=== PATIENT | male | born 1940 | race African-American/Black ===

== ENCOUNTER 2022-07-01 05:39 | Inpatient (IN) ==
[2022-07-01] MEDS ORDERED: ALBUTEROL/IPRATROPIUM 3 ML NEB RESP TX STA (05:51)
[2022-07-01] MEDS ORDERED: methylPREDNISolone SOD SUC 125 MG/2 ML VIAL IV STA (05:51)
[2022-07-01] MEDS ORDERED: ALBUTEROL 2.5 MG/3 ML NEB RESP TX ONE (05:54)
[2022-07-01] MEDS ORDERED: ALBUTEROL NEB SOLN 5 MG/ML 20 ML/BOTTLE CONT NEB SCH (06:00)
[2022-07-01] MEDS ORDERED: NITROGLYCERIN 2% OINT 1 INCH/GM PACK TOP STA (06:15)
[2022-07-01] MEDS ORDERED: FUROSEMIDE 40 MG/4 ML VIAL IV STA (06:15)
[2022-07-01 06:17] LABS: ABG Base Excess 4.4 MMOL/L (-2.5-2.5); ABG HCO3 28.2 MMOL/L (20-26); ABG Oxygen Saturation 89.7 % (95-100); ABG PCO2 41.2 MM HG (35-48); ABG PH 7.452 (7.35-7.45); ABG PO2 55.7 MM HG (80-95); ABG TCO2 25.6 MMOL/L (23-27)
[2022-07-01 06:20] LABS: Eosinophils % 0.4 % (0.00-10.9); Hematocrit 38.4 VOL% (42.0-52.0); Immature Granulocytes % 0.2 %; Immature Granulocytes Absolute 0.01 #; Lymphocytes # 0.5 10*3/uL (1.4-4.0); Lymphocytes % 8.3 % (21.2-54.2); Mean Corpuscular HGB Conc 31.3 GM/DL (32-36); Mean Corpuscular Volume 99.7 FL (87-102); Mean Platelet Volume 12.2 FL (9.6-12.0); Monocytes # 0.2 10*3/uL (0.11-0.8); Monocytes % 3.1 % (1.7-12.7); Platelet Count 111 T/CUMM (130-400); Red Blood Count 3.85 MC/CUMM (3.8-5.5); Red Cell Distribution Width 13.2 % (9.3-17.3); White Blood Count 5.4 T/CUMM (4-12)
[2022-07-01 06:22] LABS: PT Patient Result 11.2 SECS (10.1-12.1)
[2022-07-01] MEDS ORDERED: LEVOFLOXACIN INJ 750 MG/150 ML PREMIX IV STA (06:35)
[2022-07-01 06:37] LABS: Alanine Aminotransferase 26 U/L (16-61); Albumin 3.4 G/DL (3.4-5.0); Alkaline Phosphatase 129 U/L (45-117); Aspartate Amino Transferase 30 U/L (0-37); Blood Urea Nitrogen 46 MG/DL (7-18); Calcium 9.3 MG/DL (8.5-10.1); Carbon Dioxide 29 MMOL/L (21-32); Chloride 104 MMOL/L (98-107); Glucose 146 MG/DL (74-106); Osmolality,Calculated 289.7 MOS/KG (273-304); Potassium 5.3 MMOL/L (3.5-5.1); Sodium 138 MMOL/L (136-145); Total Protein 6.8 G/DL (6.4-8.2)
[2022-07-01] MEDS ORDERED: SODIUM CHLORIDE 0.9% 1,750 ML IV ONE (06:37)
[2022-07-01] MEDS ORDERED: SODIUM CHLORIDE 0.9% 1,000 ML IV STA ×2 (06:37→08:39)
[2022-07-01 07:03] LABS: Bilirubin,Urine Negative (Negative); Blood, Urine Negative (Negative); Glucose,Urine (UA) Negative (Negative); Ketones,Urine Negative (Negative); Nitrite,Urine Negative (Negative); Protein,Urine 30 mg/dL (Negative); RBC,Urine 1 /HPF (0-4); Urine Appearance Clear (Clear); Urine Color Yellow (Yellow); Urine Specific Gravity 1.015 (1.001-1.035); Urine Urobilinogen 0.2 eU/dL (<2.0); Urine pH 7.5 (4.5-8.0)
[2022-07-01] MEDS ORDERED: ALBUTEROL 2.5 MG/3 ML NEB RESP TX PRN (08:05)
[2022-07-01] MEDS ORDERED: BISACODYL 5 MG TABLET PO PRN (08:06)
[2022-07-01] MEDS ORDERED: MORPHINE 2 MG/1 ML SYRINGE IV PRN (08:06)
[2022-07-01] MEDS ORDERED: ACETAMINOPHEN 325 MG TABLET PO PRN (08:06)
[2022-07-01] MEDS ORDERED: ONDANSETRON 4 MG/2 ML VIAL IV PRN (08:06)
[2022-07-01] MEDS: ENOXAPARIN 40 MG/0.4 ML SYRINGE SUBCUT SCH (08:55)
[2022-07-01] MEDS: PIPERACILLIN/TAZOBACTAM 3,375 MG in SODIUM CHLORIDE 0.9% 100 ML IV SCH ×2 (08:55→15:51)
[2022-07-01] MEDS ORDERED: SODIUM CHLORIDE 0.9% 1,000 ML IV ONE (09:33)
[2022-07-01 10:00] LABS: Free T4 (Free Thyroxine) 1.14 NG/DL (0.76-1.46); Thyroid Stimulating Hormone 0.522 uIU/ml (0.358-3.74)
[2022-07-01] MEDS: PANTOPRAZOLE 40 MG TABLET PO SCH (10:21)
[2022-07-01] MEDS: SODIUM CHLORIDE 0.9% 1,000 ML IV SCH ×2 (10:48→21:30)
[2022-07-01 10:51] LABS: Arterial Base Excess iSTAT -1 MMOL/L (-2.5-2.5); Arterial Bicarbonate iSTAT 26.7 MMOL/L (20-26); Arterial O2 Saturation iSTAT 47 % (95-100); Arterial PCO2 iSTAT 61 MM HG (35-48); Arterial PO2 iSTAT 30 MM HG (80-95); Arterial Total CO2 iSTAT 29 MMO/L (23-27)
[2022-07-01 14:37] LABS: Calcium 8.8 MG/DL (8.5-10.1); Osmolality,Calculated 293.5 MOS/KG (273-304); Potassium 4.3 MMOL/L (3.5-5.1)
[2022-07-01] MEDS ORDERED: fentaNYL INJ 1,250 MCG in SODIUM CHLORIDE 0.9% 225 ML IV PRN (16:21)
[2022-07-01 16:43] LABS: Arterial Base Excess iSTAT 2 MMOL/L (-2.5-2.5); Arterial Bicarbonate iSTAT 27.1 MMOL/L (20-26); Arterial O2 Saturation iSTAT 98 % (95-100); Arterial PCO2 iSTAT 44 MM HG (35-48); Arterial PO2 iSTAT 99 MM HG (80-95); Arterial Total CO2 iSTAT 28 MMO/L (23-27); Arterial pH iSTAT 7.398 (7.35-7.45)
[2022-07-01] MEDS: DOXAZOSIN 1 MG TABLET PO SCH (20:06)
[2022-07-01] MEDS: TICAGRELOR 90 MG TABLET PO SCH (20:06)
[2022-07-01] MEDS: SIMVASTATIN 10 MG TABLET PO SCH (20:06)
[2022-07-02] MEDS: PIPERACILLIN/TAZOBACTAM 3,375 MG in SODIUM CHLORIDE 0.9% 100 ML IV SCH ×3 (00:22→18:05)
[2022-07-02 05:33] LABS: Hematocrit 30.1 VOL% (42.0-52.0); Hemoglobin 9.5 GM/DL (14.0-18.0); Immature Granulocytes % 0.5 %; Immature Granulocytes Absolute 0.06 #; Lymphocytes # 0.3 10*3/uL (1.4-4.0); Lymphocytes % 2.8 % (21.2-54.2); Mean Corpuscular HGB Conc 31.6 GM/DL (32-36); Mean Corpuscular Volume 99.3 FL (87-102); Mean Platelet Volume 12.8 FL (9.6-12.0); Monocytes # 0.7 10*3/uL (0.11-0.8); Monocytes % 5.8 % (1.7-12.7); Neutrophils % 90.9 % (38.7-73.9); Platelet Count 82 T/CUMM (130-400); Red Blood Count 3.03 MC/CUMM (3.8-5.5); Red Cell Distribution Width 13.6 % (9.3-17.3); White Blood Count 12.2 T/CUMM (4-12)
[2022-07-02 05:48] LABS: Osmolality,Calculated 301.8 MOS/KG (273-304); Potassium 4.3 MMOL/L (3.5-5.1)
[2022-07-02 05:51] LABS: Band Neutrophils 2 % (0-10); Lymphocytes 4 % (20-55); Platelet Estimate Decreased; Total Cells Counted 100
[2022-07-02] MEDS: LACTATED RINGERS 1,000 ML IV SCH ×2 (08:59→16:07)
[2022-07-02] MEDS: ASPIRIN EC 81 MG TABLET PO SCH (08:59)
[2022-07-02] MEDS: ENOXAPARIN 40 MG/0.4 ML SYRINGE SUBCUT SCH (08:59)
[2022-07-02] MEDS: PANTOPRAZOLE 40 MG TABLET PO SCH (09:00)
[2022-07-02] MEDS: SODIUM CHLORIDE 0.9% 1,000 ML IV SCH (09:00)
[2022-07-02] MEDS: TICAGRELOR 90 MG TABLET PO SCH ×2 (09:00→20:06)
[2022-07-02] MEDS: LEVOTHYROXINE 112 MCG TABLET PO SCH (09:00)
[2022-07-02] MEDS: SIMVASTATIN 10 MG TABLET PO SCH (20:06)
[2022-07-02] MEDS: DOXAZOSIN 1 MG TABLET PO SCH (20:07)
[2022-07-03] MEDS: PIPERACILLIN/TAZOBACTAM 3,375 MG in SODIUM CHLORIDE 0.9% 100 ML IV SCH ×3 (01:00→17:02)
[2022-07-03] MEDS: LACTATED RINGERS 1,000 ML IV SCH ×2 (01:00→08:40)
[2022-07-03 05:47] LABS: Basophils % 0.1 % (0.0-0.8); Eosinophils # 0.1 10*3/uL (0.0-0.87); Eosinophils % 0.5 % (0.00-10.9); Hematocrit 30.5 VOL% (42.0-52.0); Hemoglobin 9.7 GM/DL (14.0-18.0); Immature Granulocytes % 0.9 %; Immature Granulocytes Absolute 0.11 #; Lymphocytes # 0.5 10*3/uL (1.4-4.0); Lymphocytes % 4.5 % (21.2-54.2); Mean Corpuscular HGB Conc 31.8 GM/DL (32-36); Mean Corpuscular Volume 99.3 FL (87-102); Mean Platelet Volume 13.8 FL (9.6-12.0); Monocytes # 0.7 10*3/uL (0.11-0.8); Monocytes % 5.6 % (1.7-12.7); Neutrophils % 88.4 % (38.7-73.9); Platelet Count 89 T/CUMM (130-400); Red Blood Count 3.07 MC/CUMM (3.8-5.5); Red Cell Distribution Width 13.5 % (9.3-17.3); White Blood Count 11.7 T/CUMM (4-12)
[2022-07-03 05:56] LABS: Calcium 8.6 MG/DL (8.5-10.1); Phosphorous 2.6 MG/DL (2.5-4.9); Potassium 4.7 MMOL/L (3.5-5.1)
[2022-07-03 06:13] LABS: Band Neutrophils 1 % (0-10); Lymphocytes 7 % (20-55); Platelet Estimate Decreased; Total Cells Counted 100
[2022-07-03] MEDS: ASPIRIN EC 81 MG TABLET PO SCH (09:26)
[2022-07-03] MEDS: ENOXAPARIN 40 MG/0.4 ML SYRINGE SUBCUT SCH (09:26)
[2022-07-03] MEDS: LEVOTHYROXINE 112 MCG TABLET PO SCH (09:26)
[2022-07-03] MEDS: TICAGRELOR 90 MG TABLET PO SCH ×2 (09:26→21:12)
[2022-07-03] MEDS: PANTOPRAZOLE 40 MG TABLET PO SCH (09:26)
[2022-07-03] MEDS: carvediloL 3.125 MG TABLET PO SCH ×2 (15:11→21:12)
[2022-07-03] MEDS: DOXAZOSIN 1 MG TABLET PO SCH (21:12)
[2022-07-03] MEDS: SIMVASTATIN 10 MG TABLET PO SCH (21:12)
[2022-07-04] MEDS: PIPERACILLIN/TAZOBACTAM 3,375 MG in SODIUM CHLORIDE 0.9% 100 ML IV SCH ×4 (01:22→23:57)
[2022-07-04] MEDS: LACTATED RINGERS 1,000 ML IV SCH ×2 (04:09→06:31)
[2022-07-04 05:45] LABS: Basophils % 0.1 % (0.0-0.8); Eosinophils # 0.1 10*3/uL (0.0-0.87); Eosinophils % 0.8 % (0.00-10.9); Hematocrit 28.5 VOL% (42.0-52.0); Immature Granulocytes % 1.1 %; Immature Granulocytes Absolute 0.11 #; Lymphocytes # 0.5 10*3/uL (1.4-4.0); Lymphocytes % 5.2 % (21.2-54.2); Mean Corpuscular HGB Conc 31.6 GM/DL (32-36); Mean Corpuscular Volume 98.6 FL (87-102); Mean Platelet Volume 13.4 FL (9.6-12.0); Monocytes # 0.7 10*3/uL (0.11-0.8); Monocytes % 6.9 % (1.7-12.7); Neutrophils % 85.9 % (38.7-73.9); Platelet Count 95 T/CUMM (130-400); Red Blood Count 2.89 MC/CUMM (3.8-5.5); Red Cell Distribution Width 13.3 % (9.3-17.3); White Blood Count 10.4 T/CUMM (4-12)
[2022-07-04 06:16] LABS: Osmolality,Calculated 287.3 MOS/KG (273-304); Potassium 4.6 MMOL/L (3.5-5.1)
[2022-07-04 06:59] LABS: Platelet Estimate Decreased
[2022-07-04] MEDS: PANTOPRAZOLE 40 MG TABLET PO SCH (08:37)
[2022-07-04] MEDS: TICAGRELOR 90 MG TABLET PO SCH ×2 (08:38→20:11)
[2022-07-04] MEDS: carvediloL 3.125 MG TABLET PO SCH ×2 (08:38→20:11)
[2022-07-04] MEDS: ENOXAPARIN 40 MG/0.4 ML SYRINGE SUBCUT SCH (08:38)
[2022-07-04] MEDS: LEVOTHYROXINE 112 MCG TABLET PO SCH (08:38)
[2022-07-04] MEDS: ASPIRIN EC 81 MG TABLET PO SCH (08:38)
[2022-07-04 12:58] LABS: % Iron Saturation 13.5 % (18-50)
[2022-07-04] MEDS: FLUCONAZOLE INJ 200 MG/100 ML PREMIX IV SCH (12:59)
[2022-07-04 13:06] LABS: Folate 11.06 NG/ML (5.38-24.0)
[2022-07-04] MEDS ORDERED: ACETYLCYSTEINE 20% 800 MG/4 ML VIAL RESP TX SCH (17:22)
[2022-07-04] MEDS ORDERED: ACETYLCYSTEINE 20% 800 MG/4 ML VIAL RESP TX PRN (17:23)
[2022-07-04] MEDS ORDERED: ALBUTEROL/IPRATROPIUM 3 ML NEB RESP TX ONE (18:32)
[2022-07-04] MEDS: SIMVASTATIN 10 MG TABLET PO SCH (20:11)
[2022-07-04] MEDS: DOXAZOSIN 1 MG TABLET PO SCH (20:11)
[2022-07-05] MEDS: ENOXAPARIN 40 MG/0.4 ML SYRINGE SUBCUT SCH (09:46)
[2022-07-05] MEDS: PIPERACILLIN/TAZOBACTAM 3,375 MG in SODIUM CHLORIDE 0.9% 100 ML IV SCH ×2 (09:46→16:50)
[2022-07-05] MEDS: ASPIRIN EC 81 MG TABLET PO SCH (09:47)
[2022-07-05] MEDS: LEVOTHYROXINE 112 MCG TABLET PO SCH (09:47)
[2022-07-05] MEDS: TICAGRELOR 90 MG TABLET PO SCH ×2 (09:47→21:38)
[2022-07-05] MEDS: PANTOPRAZOLE 40 MG TABLET PO SCH (09:47)
[2022-07-05] MEDS: carvediloL 3.125 MG TABLET PO SCH ×2 (09:47→21:38)
[2022-07-05] MEDS ORDERED: VANCOMYCIN INJ 1,000 MG in SODIUM CHLORIDE 0.9% 250 ML IV ONE (12:00)
[2022-07-05] MEDS: FLUCONAZOLE INJ 200 MG/100 ML PREMIX IV SCH (13:31)
[2022-07-05] MEDS: DOXAZOSIN 1 MG TABLET PO SCH (21:37)
[2022-07-05] MEDS: SIMVASTATIN 10 MG TABLET PO SCH (21:37)
[2022-07-06] MEDS: PIPERACILLIN/TAZOBACTAM 3,375 MG in SODIUM CHLORIDE 0.9% 100 ML IV SCH ×3 (00:18→17:27)
[2022-07-06 05:05] LABS: Basophils % 0.2 % (0.0-0.8); Eosinophils # 0.2 10*3/uL (0.0-0.87); Eosinophils % 1.9 % (0.00-10.9); Hematocrit 29.1 VOL% (42.0-52.0); Hemoglobin 9.2 GM/DL (14.0-18.0); Immature Granulocytes % 2.1 %; Immature Granulocytes Absolute 0.19 #; Lymphocytes # 0.6 10*3/uL (1.4-4.0); Lymphocytes % 6.8 % (21.2-54.2); Mean Corpuscular HGB Conc 31.6 GM/DL (32-36); Mean Corpuscular Volume 98.3 FL (87-102); Mean Platelet Volume 12.7 FL (9.6-12.0); Monocytes # 0.9 10*3/uL (0.11-0.8); Monocytes % 10.2 % (1.7-12.7); Neutrophils % 78.8 % (38.7-73.9); Platelet Count 107 T/CUMM (130-400); Red Blood Count 2.96 MC/CUMM (3.8-5.5); Red Cell Distribution Width 13.1 % (9.3-17.3); White Blood Count 9.3 T/CUMM (4-12)
[2022-07-06 05:27] LABS: Calcium 8.7 MG/DL (8.5-10.1); Osmolality,Calculated 286.3 MOS/KG (273-304); Potassium 4.9 MMOL/L (3.5-5.1)
[2022-07-06] MEDS: ENOXAPARIN 40 MG/0.4 ML SYRINGE SUBCUT SCH (08:55)
[2022-07-06] MEDS: TICAGRELOR 90 MG TABLET PO SCH ×2 (09:00→20:30)
[2022-07-06] MEDS: carvediloL 3.125 MG TABLET PO SCH ×3 (09:00→20:30)
[2022-07-06] MEDS: LEVOTHYROXINE 112 MCG TABLET PO SCH (09:00)
[2022-07-06] MEDS: PANTOPRAZOLE 40 MG TABLET PO SCH (09:00)
[2022-07-06] MEDS: ASPIRIN EC 81 MG TABLET PO SCH (09:00)
[2022-07-06] MEDS: FERRIC GLUCONATE COMPLEX 125 MG in SODIUM CHLORIDE 0.9% 100 ML IV SCH (09:08)
[2022-07-06] MEDS: FLUCONAZOLE INJ 200 MG/100 ML PREMIX IV SCH (16:13)
[2022-07-06] MEDS: DOXAZOSIN 1 MG TABLET PO SCH (20:30)
[2022-07-06] MEDS: SIMVASTATIN 10 MG TABLET PO SCH (20:30)
[2022-07-07] MEDS: PIPERACILLIN/TAZOBACTAM 3,375 MG in SODIUM CHLORIDE 0.9% 100 ML IV SCH ×3 (01:20→17:45)
[2022-07-07 05:13] LABS: Basophils % 0.2 % (0.0-0.8); Eosinophils # 0.2 10*3/uL (0.0-0.87); Eosinophils % 2.6 % (0.00-10.9); Hematocrit 29.7 VOL% (42.0-52.0); Hemoglobin 9.5 GM/DL (14.0-18.0); Immature Granulocytes % 2.2 %; Lymphocytes # 0.6 10*3/uL (1.4-4.0); Lymphocytes % 6.3 % (21.2-54.2); Mean Platelet Volume 12.2 FL (9.6-12.0); Monocytes % 10.4 % (1.7-12.7); Neutrophils % 78.3 % (38.7-73.9); Platelet Count 133 T/CUMM (130-400); Red Blood Count 3.03 MC/CUMM (3.8-5.5); Red Cell Distribution Width 13.2 % (9.3-17.3); White Blood Count 9.2 T/CUMM (4-12)
[2022-07-07 05:31] LABS: Calcium 9.3 MG/DL (8.5-10.1); Osmolality,Calculated 286.4 MOS/KG (273-304); Potassium 4.7 MMOL/L (3.5-5.1)
[2022-07-07] MEDS: FERRIC GLUCONATE COMPLEX 125 MG in SODIUM CHLORIDE 0.9% 100 ML IV SCH (08:31)
[2022-07-07] MEDS: LEVOTHYROXINE 112 MCG TABLET PO SCH (09:48)
[2022-07-07] MEDS: ENOXAPARIN 40 MG/0.4 ML SYRINGE SUBCUT SCH (09:48)
[2022-07-07] MEDS: ASPIRIN EC 81 MG TABLET PO SCH (09:48)
[2022-07-07] MEDS: TICAGRELOR 90 MG TABLET PO SCH ×2 (09:48→21:24)
[2022-07-07] MEDS: PANTOPRAZOLE 40 MG TABLET PO SCH (09:48)
[2022-07-07] MEDS: carvediloL 3.125 MG TABLET PO SCH (09:49)
[2022-07-07] MEDS: guaiFENesin/DM ER 600-30 MG TABLET PO PRN ×2 (12:19→21:24)
[2022-07-07] MEDS: FLUCONAZOLE INJ 200 MG/100 ML PREMIX IV SCH (12:30)
[2022-07-07] MEDS: DOXAZOSIN 1 MG TABLET PO SCH (21:24)
[2022-07-07] MEDS: SIMVASTATIN 10 MG TABLET PO SCH (21:24)
[2022-07-08] MEDS: PIPERACILLIN/TAZOBACTAM 3,375 MG in SODIUM CHLORIDE 0.9% 100 ML IV SCH ×3 (00:51→17:11)
[2022-07-08] MEDS: FERRIC GLUCONATE COMPLEX 125 MG in SODIUM CHLORIDE 0.9% 100 ML IV SCH (08:45)
[2022-07-08] MEDS: TICAGRELOR 90 MG TABLET PO SCH ×2 (08:46→20:59)
[2022-07-08] MEDS: ENOXAPARIN 40 MG/0.4 ML SYRINGE SUBCUT SCH (08:47)
[2022-07-08] MEDS: ASPIRIN EC 81 MG TABLET PO SCH (08:47)
[2022-07-08] MEDS: LEVOTHYROXINE 112 MCG TABLET PO SCH (08:47)
[2022-07-08] MEDS: PANTOPRAZOLE 40 MG TABLET PO SCH (08:47)
[2022-07-08] MEDS: FLUCONAZOLE INJ 200 MG/100 ML PREMIX IV SCH (12:44)
[2022-07-08] MEDS: SIMVASTATIN 10 MG TABLET PO SCH (20:59)
[2022-07-08] MEDS: DOXAZOSIN 1 MG TABLET PO SCH (20:59)
[2022-07-08] MEDS: guaiFENesin/DM ER 600-30 MG TABLET PO PRN (20:59)
[2022-07-09 04:49] LABS: Basophils % 0.3 % (0.0-0.8); Eosinophils # 0.2 10*3/uL (0.0-0.87); Eosinophils % 2.3 % (0.00-10.9); Hematocrit 30.8 VOL% (42.0-52.0); Hemoglobin 9.6 GM/DL (14.0-18.0); Immature Granulocytes % 2.2 %; Immature Granulocytes Absolute 0.23 #; Lymphocytes # 0.7 10*3/uL (1.4-4.0); Mean Corpuscular HGB Conc 31.2 GM/DL (32-36); Mean Corpuscular Volume 98.7 FL (87-102); Mean Platelet Volume 11.8 FL (9.6-12.0); Monocytes # 0.7 10*3/uL (0.11-0.8); Monocytes % 6.4 % (1.7-12.7); Neutrophils % 81.8 % (38.7-73.9); Platelet Count 159 T/CUMM (130-400); Red Blood Count 3.12 MC/CUMM (3.8-5.5); Red Cell Distribution Width 13.4 % (9.3-17.3); White Blood Count 10.4 T/CUMM (4-12)
[2022-07-09 05:03] LABS: Calcium 9.4 MG/DL (8.5-10.1); Osmolality,Calculated 285.4 MOS/KG (273-304)
[2022-07-09] MEDS ORDERED: LIDOCAINE 2% 20 ML VIAL RESP TX ONE (07:30)
[2022-07-09] MEDS ORDERED: LIDOCAINE 2% VISCOUS 100 ML BOTTLE SWISH/SPIT ONE (07:30)
[2022-07-09] MEDS ORDERED: MIDAZOLAM 2 MG/2 ML VIAL IV ONE (07:30)
[2022-07-09] MEDS ORDERED: LIDOCAINE 1% 20 ML VIAL MISC INJ ONE (07:30)
[2022-07-09] MEDS: PANTOPRAZOLE 40 MG TABLET PO SCH (09:44)
[2022-07-09] MEDS: ENOXAPARIN 40 MG/0.4 ML SYRINGE SUBCUT SCH (09:44)
[2022-07-09] MEDS: FERRIC GLUCONATE COMPLEX 125 MG in SODIUM CHLORIDE 0.9% 100 ML IV SCH (09:44)
[2022-07-09] MEDS: LEVOTHYROXINE 112 MCG TABLET PO SCH (09:45)
[2022-07-09] MEDS: TICAGRELOR 90 MG TABLET PO SCH ×2 (09:45→21:16)
[2022-07-09] MEDS: ASPIRIN EC 81 MG TABLET PO SCH (09:45)
[2022-07-09] MEDS: FLUCONAZOLE INJ 200 MG/100 ML PREMIX IV SCH (14:42)
[2022-07-09] MEDS: DOXAZOSIN 1 MG TABLET PO SCH (21:16)
[2022-07-09] MEDS: SIMVASTATIN 10 MG TABLET PO SCH (21:16)
[2022-07-10 05:24] LABS: Basophils % 0.2 % (0.0-0.8); Eosinophils # 0.2 10*3/uL (0.0-0.87); Hematocrit 30.2 VOL% (42.0-52.0); Hemoglobin 9.3 GM/DL (14.0-18.0); Immature Granulocytes % 1.9 %; Immature Granulocytes Absolute 0.18 #; Lymphocytes # 0.6 10*3/uL (1.4-4.0); Mean Corpuscular HGB Conc 30.8 GM/DL (32-36); Mean Corpuscular Volume 101.7 FL (87-102); Mean Platelet Volume 11.5 FL (9.6-12.0); Monocytes # 0.5 10*3/uL (0.11-0.8); Monocytes % 5.1 % (1.7-12.7); Neutrophils % 84.8 % (38.7-73.9); Platelet Count 189 T/CUMM (130-400); Red Blood Count 2.97 MC/CUMM (3.8-5.5); Red Cell Distribution Width 13.2 % (9.3-17.3); White Blood Count 9.3 T/CUMM (4-12)
[2022-07-10 05:56] LABS: Calcium 9.4 MG/DL (8.5-10.1); Osmolality,Calculated 286.5 MOS/KG (273-304); Potassium 4.7 MMOL/L (3.5-5.1)
[2022-07-10] MEDS: ASPIRIN EC 81 MG TABLET PO SCH (08:32)
[2022-07-10] MEDS: PANTOPRAZOLE 40 MG TABLET PO SCH (08:32)
[2022-07-10] MEDS: ENOXAPARIN 40 MG/0.4 ML SYRINGE SUBCUT SCH (08:32)
[2022-07-10] MEDS: TICAGRELOR 90 MG TABLET PO SCH ×2 (08:32→20:38)
[2022-07-10] MEDS: LEVOTHYROXINE 112 MCG TABLET PO SCH (08:32)
[2022-07-10] MEDS: FERRIC GLUCONATE COMPLEX 125 MG in SODIUM CHLORIDE 0.9% 100 ML IV SCH (09:10)
[2022-07-10] MEDS: FLUCONAZOLE INJ 200 MG/100 ML PREMIX IV SCH (13:47)
[2022-07-10] MEDS: DOXAZOSIN 1 MG TABLET PO SCH (20:38)
[2022-07-10] MEDS: SIMVASTATIN 10 MG TABLET PO SCH (20:38)
[2022-07-11 05:55] LABS: Basophils % 0.2 % (0.0-0.8); Eosinophils # 0.2 10*3/uL (0.0-0.87); Eosinophils % 1.8 % (0.00-10.9); Hematocrit 30.9 VOL% (42.0-52.0); Hemoglobin 9.3 GM/DL (14.0-18.0); Immature Granulocytes % 1.8 %; Immature Granulocytes Absolute 0.18 #; Lymphocytes # 0.6 10*3/uL (1.4-4.0); Lymphocytes % 5.9 % (21.2-54.2); Mean Corpuscular HGB Conc 30.1 GM/DL (32-36); Mean Corpuscular Volume 103.7 FL (87-102); Mean Platelet Volume 11.4 FL (9.6-12.0); Monocytes # 0.5 10*3/uL (0.11-0.8); Monocytes % 4.4 % (1.7-12.7); Neutrophils % 85.9 % (38.7-73.9); Platelet Count 216 T/CUMM (130-400); Red Blood Count 2.98 MC/CUMM (3.8-5.5); Red Cell Distribution Width 13.4 % (9.3-17.3); White Blood Count 10.2 T/CUMM (4-12)
[2022-07-11 06:12] LABS: Calcium 9.2 MG/DL (8.5-10.1); Osmolality,Calculated 289.3 MOS/KG (273-304); Potassium 5.1 MMOL/L (3.5-5.1)
[2022-07-11 09:41] LABS: Free T4 (Free Thyroxine) 0.92 NG/DL (0.76-1.46)
[2022-07-11] MEDS: TICAGRELOR 90 MG TABLET PO SCH ×2 (09:52→21:02)
[2022-07-11] MEDS: PANTOPRAZOLE 40 MG TABLET PO SCH (09:52)
[2022-07-11] MEDS: ASPIRIN EC 81 MG TABLET PO SCH (09:52)
[2022-07-11] MEDS: FERRIC GLUCONATE COMPLEX 125 MG in SODIUM CHLORIDE 0.9% 100 ML IV SCH (09:52)
[2022-07-11] MEDS: ENOXAPARIN 40 MG/0.4 ML SYRINGE SUBCUT SCH (09:52)
[2022-07-11] MEDS: LEVOTHYROXINE 112 MCG TABLET PO SCH (09:52)
[2022-07-11] MEDS: FLUCONAZOLE INJ 200 MG/100 ML PREMIX IV SCH (13:22)
[2022-07-11] MEDS: DOXAZOSIN 1 MG TABLET PO SCH (21:02)
[2022-07-11] MEDS: SIMVASTATIN 10 MG TABLET PO SCH (21:02)
[2022-07-12] MEDS ORDERED: LEVOTHYROXINE 125 MCG TABLET PO SCH (09:00)
[2022-07-12] MEDS: FERRIC GLUCONATE COMPLEX 125 MG in SODIUM CHLORIDE 0.9% 100 ML IV SCH (10:16)
[2022-07-12] MEDS: TICAGRELOR 90 MG TABLET PO SCH (10:17)
[2022-07-12] MEDS: PANTOPRAZOLE 40 MG TABLET PO SCH (10:17)
[2022-07-12] MEDS: ENOXAPARIN 40 MG/0.4 ML SYRINGE SUBCUT SCH (10:17)
[2022-07-12] MEDS: ASPIRIN EC 81 MG TABLET PO SCH (10:17)
[2022-07-12 12:26] VITALS: BP 122/45
== END 2022-07-12 15:47 | disposition home health service (06) | DRG 871 ==
LOC: N.ED 05:39 → SUATTDRO 08:05 → N.EDINP 08:05 → N.CC 09:15 → N.5E 07-03 14:48
PROVIDERS: ADMIT Family Medicine; ATTEND Internal Medicine

== ENCOUNTER 2022-10-18 19:39 | Inpatient (IN) ==
[2022-10-18 20:12] VITALS: BP 62/29
[2022-10-18] MEDS ORDERED: SODIUM CHLORIDE 0.9% 1,000 ML IV STA (20:40)
[2022-10-18 21:11] LABS: Basophils % 0.1 % (0.0-0.8); Eosinophils % 0.2 % (0.00-10.9); Hematocrit 46.9 VOL% (42.0-52.0); Immature Granulocytes % 0.5 %; Immature Granulocytes Absolute 0.05 #; Lymphocytes # 0.9 10*3/uL (1.4-4.0); Lymphocytes % 8.5 % (21.2-54.2); Mean Corpuscular HGB Conc 29.9 GM/DL (32-36); Mean Corpuscular Volume 104.5 FL (87-102); Monocytes # 0.3 10*3/uL (0.11-0.8); Monocytes % 2.8 % (1.7-12.7); Neutrophils % 87.9 % (38.7-73.9); Platelet Count 88 T/CUMM (130-400); Red Blood Count 4.49 MC/CUMM (3.8-5.5); Red Cell Distribution Width 13.4 % (9.3-17.3); White Blood Count 10.7 T/CUMM (4-12)
[2022-10-18 21:44] LABS: Mucus,Urine Occasional /LPF (Occasional); RBC,Urine 72 /HPF (0-4); Squamous Epithelial Cell,Urine Occasional /HPF (0-10)
[2022-10-18 21:45] LABS: Bilirubin,Urine Small mg/dL (Negative); Blood, Urine Large mg/dL (Negative); Glucose,Urine (UA) Negative (Negative); Ketones,Urine Trace mg/dL (Negative); Nitrite,Urine Negative (Negative); Protein,Urine 100 mg/dL (Negative); Urine Appearance Clear (Clear); Urine Color Yellow (Yellow); Urine Specific Gravity > 1.030 (1.001-1.035)
[2022-10-18 21:46] LABS: Urine Urobilinogen 0.2 eU/dL (<2.0)
[2022-10-18 22:16] LABS: Albumin 3.6 G/DL (3.4-5.0); Bilirubin,Total 0.4 MG/DL (0.20-1.00); Calcium 9.5 MG/DL (8.5-10.1); Osmolality,Calculated 402.9 MOS/KG (273-304); Potassium 5.9 MMOL/L (3.5-5.1); Total Protein 7.8 G/DL (6.4-8.2)
[2022-10-18] MEDS ORDERED: CIPROFLOXACIN INJ 400 MG/200 ML PREMIX IV STA (22:21)
[2022-10-18] MEDS ORDERED: LEVOFLOXACIN INJ 750 MG/150 ML PREMIX IV STA (22:23)
[2022-10-18 22:29] LABS: Arterial Base Excess iSTAT -3 MMOL/L (-2.5-2.5); Arterial Bicarbonate iSTAT 22.8 MMOL/L (20-26); Arterial O2 Saturation iSTAT 95 % (95-100); Arterial PCO2 iSTAT 43 MM HG (35-48); Arterial PO2 iSTAT 79 MM HG (80-95); Arterial Total CO2 iSTAT 24 MMO/L (23-27)
[2022-10-18] MEDS ORDERED: SODIUM CHLORIDE 0.45% 1,000 ML IV ONE (23:00)
[2022-10-18] MEDS ORDERED: MEROPENEM 500 MG in SODIUM CHLORIDE 0.9% 100 ML IV ONE (23:14)
[2022-10-18] MEDS ORDERED: SODIUM POLYSTYRENE SULFATE 15 GM/60 ML BOTTLE PEG ONE (23:36)
[2022-10-18] MEDS ORDERED: SODIUM CHLORIDE 0.45% 1,000 ML IV SCH (23:45)
[2022-10-18] MEDS ORDERED: ACETAMINOPHEN 325 MG TABLET PEG PRN (23:46)
[2022-10-18] MEDS ORDERED: ALBUTEROL 2.5 MG/3 ML NEB RESP TX PRN (23:46)
[2022-10-18] MEDS ORDERED: ONDANSETRON 4 MG/2 ML VIAL IV PRN (23:55)
[2022-10-19] MEDS: methylPREDNISolone SOD SUC 40 MG/1 ML VIAL IV SCH ×3 (00:05→16:25)
[2022-10-19] MEDS ORDERED: ALBUTEROL/IPRATROPIUM 3 ML NEB RESP TX SCH (01:00)
[2022-10-19] MEDS ORDERED: ALBUTEROL/IPRATROPIUM 3 ML NEB RESP TX PRN (01:27)
[2022-10-19 02:30] LABS: Calcium 8.9 MG/DL (8.5-10.1); Osmolality,Calculated 394.9 MOS/KG (273-304); Potassium 5.2 MMOL/L (3.5-5.1)
[2022-10-19] MEDS ORDERED: PHENYLEPHRINE DRIP 40 MG/250 ML PREMIX IV ONE (02:40)
[2022-10-19] MEDS: PHENYLEPHRINE DRIP 40 MG/250 ML PREMIX IV PRN ×4 (02:42→11:44)
[2022-10-19] MEDS ORDERED: VASOPRESSIN 100 UNITS in SODIUM CHLORIDE 0.9% 95 ML IV PRN (03:28)
[2022-10-19 03:46] LABS: ABG Base Excess -6.5 MMOL/L (-2.5-2.5); ABG HCO3 19.2 MMOL/L (20-26); ABG Oxygen Saturation 98.9 % (95-100); ABG PCO2 42.6 MM HG (35-48); ABG PH 7.282 (7.35-7.45)
[2022-10-19 03:59] LABS: Hemoglobin 12.4 GM/DL (14.0-18.0); Immature Granulocytes % 0.2 %; Immature Granulocytes Absolute 0.01 #; Lymphocytes # 0.2 10*3/uL (1.4-4.0); Lymphocytes % 3.6 % (21.2-54.2); Mean Corpuscular HGB Conc 30.2 GM/DL (32-36); Mean Corpuscular Volume 104.3 FL (87-102); Mean Platelet Volume 14.5 FL (9.6-12.0); Monocytes # 0.3 10*3/uL (0.11-0.8); Monocytes % 5.9 % (1.7-12.7); NRBC # 0.02 10*3/uL; Neutrophils % 90.3 % (38.7-73.9); Platelet Count 82 T/CUMM (130-400); Red Blood Count 3.93 MC/CUMM (3.8-5.5); Red Cell Distribution Width 13.5 % (9.3-17.3); White Blood Count 5.8 T/CUMM (4-12)
[2022-10-19 04:25] LABS: Albumin 2.4 G/DL (3.4-5.0); Bilirubin,Total 0.4 MG/DL (0.20-1.00); Calcium 7.9 MG/DL (8.5-10.1); Osmolality,Calculated 392.8 MOS/KG (273-304); Potassium 4.8 MMOL/L (3.5-5.1); Thyroid Stimulating Hormone 2.87 uIU/ml (0.358-3.74)
[2022-10-19 04:34] LABS: Band Neutrophils 9 % (0-10); Lymphocytes 5 % (20-55); Nucleated Red Blood Cells 3 /100 WBC (0-5); Platelet Estimate Decreased; Total Cells Counted 100
[2022-10-19] MEDS ORDERED: SODIUM BICARBONATE 50 MEQ/50 ML VIAL IV ONE ×2 (04:47→07:07)
[2022-10-19] MEDS ORDERED: DEXTROSE 5% 1,000 ML IV SCH ×2 (05:00)
[2022-10-19 06:56] LABS: Calcium 7.8 MG/DL (8.5-10.1); Osmolality,Calculated 404.3 MOS/KG (273-304); Potassium 4.4 MMOL/L (3.5-5.1)
[2022-10-19] MEDS ORDERED: NOREPINEPHRINE 4 MG/4 ML VIAL IV ONE (07:14)
[2022-10-19 08:23] LABS: Calcium 7.6 MG/DL (8.5-10.1); Osmolality,Calculated 409.1 MOS/KG (273-304); Potassium 4.3 MMOL/L (3.5-5.1)
[2022-10-19 08:50] LABS: Calcium 7.3 MG/DL (8.5-10.1); Osmolality,Calculated 409.1 MOS/KG (273-304); Potassium 4.5 MMOL/L (3.5-5.1)
[2022-10-19] MEDS ORDERED: SODIUM CHLORIDE 0.9% 1,000 ML IV ONE (11:15)
[2022-10-19] MEDS: NOREPINEPHRINE 8 MG in SODIUM CHLORIDE 0.9% 242 ML IV PRN ×2 (12:50→19:25)
[2022-10-19 13:12] LABS: Calcium 6.8 MG/DL (8.5-10.1); Osmolality,Calculated 385.9 MOS/KG (273-304); Potassium 4.4 MMOL/L (3.5-5.1)
[2022-10-19] MEDS ORDERED: SODIUM CHLORIDE 0.9% 1,000 ML IV SCH (13:30)
[2022-10-19 13:46] LABS: ABG Base Excess -0.8 MMOL/L (-2.5-2.5); ABG HCO3 23.6 MMOL/L (20-26); ABG Oxygen Saturation 88.9 % (95-100); ABG PCO2 51.3 MM HG (35-48); ABG PH 7.313 (7.35-7.45); ABG PO2 61.8 MM HG (80-95); ABG TCO2 23.6 MMOL/L (23-27)
[2022-10-19 16:25] LABS: ABG Base Excess 0.2 MMOL/L (-2.5-2.5); ABG HCO3 24.5 MMOL/L (20-26); ABG Oxygen Saturation 93.4 % (95-100); ABG PCO2 43.9 MM HG (35-48); ABG PH 7.374 (7.35-7.45); ABG PO2 71.6 MM HG (80-95); ABG TCO2 22.9 MMOL/L (23-27)
[2022-10-19 16:44] LABS: Osmolality,Calculated 378.3 MOS/KG (273-304); Potassium 4.9 MMOL/L (3.5-5.1)
[2022-10-19] MEDS: LACTATED RINGERS 1,000 ML IV SCH (18:15)
[2022-10-19 20:24] LABS: Calcium 6.7 MG/DL (8.5-10.1); Osmolality,Calculated 366.7 MOS/KG (273-304); Potassium 4.9 MMOL/L (3.5-5.1)
[2022-10-19] MEDS: MEROPENEM 500 MG in SODIUM CHLORIDE 0.9% 100 ML IV SCH (23:36)
[2022-10-20] MEDS: NOREPINEPHRINE 8 MG in SODIUM CHLORIDE 0.9% 242 ML IV PRN ×5 (01:40→22:03)
[2022-10-20] MEDS: methylPREDNISolone SOD SUC 40 MG/1 ML VIAL IV SCH ×4 (01:46→23:33)
[2022-10-20 02:04] LABS: Calcium 7.1 MG/DL (8.5-10.1); Osmolality,Calculated 368.7 MOS/KG (273-304); Potassium 5.1 MMOL/L (3.5-5.1)
[2022-10-20 04:13] LABS: ABG Base Excess -3.1 MMOL/L (-2.5-2.5); ABG HCO3 21.8 MMOL/L (20-26); ABG Oxygen Saturation 97.3 % (95-100); ABG PCO2 36.2 MM HG (35-48); ABG PH 7.381 (7.35-7.45); ABG PO2 95.9 MM HG (80-95); ABG TCO2 19.7 MMOL/L (23-27)
[2022-10-20 04:18] LABS: Basophils % 0.3 % (0.0-0.8); Hematocrit 34.4 VOL% (42.0-52.0); Hemoglobin 10.6 GM/DL (14.0-18.0); Immature Granulocytes Absolute 0.12 #; Lymphocytes # 0.3 10*3/uL (1.4-4.0); Lymphocytes % 5.3 % (21.2-54.2); Mean Corpuscular HGB Conc 30.8 GM/DL (32-36); Mean Corpuscular Volume 102.4 FL (87-102); Monocytes # 0.2 10*3/uL (0.11-0.8); Monocytes % 3.6 % (1.7-12.7); NRBC # 0.02 10*3/uL; Neutrophils % 88.8 % (38.7-73.9); Platelet Count 65 T/CUMM (130-400); Red Blood Count 3.36 MC/CUMM (3.8-5.5); Red Cell Distribution Width 13.7 % (9.3-17.3); White Blood Count 5.9 T/CUMM (4-12)
[2022-10-20] MEDS: LACTATED RINGERS 1,000 ML IV SCH ×2 (04:20→14:20)
[2022-10-20 04:34] LABS: Albumin 1.9 G/DL (3.4-5.0); Bilirubin,Total 0.5 MG/DL (0.20-1.00); Calcium 7.1 MG/DL (8.5-10.1); Osmolality,Calculated 366.9 MOS/KG (273-304); Potassium 5.1 MMOL/L (3.5-5.1); Total Protein 5.1 G/DL (6.4-8.2)
[2022-10-20 04:41] LABS: Band Neutrophils 1 % (0-10); Lymphocytes 10 % (20-55); Metamyelocytes 3 %; Total Cells Counted 100
[2022-10-20 04:42] LABS: Macrocytosis Slight; Platelet Estimate Decreased
[2022-10-20] MEDS ORDERED: AMIODARONE INJ 150 MG in DEXTROSE 5% 100 ML IV ONE (08:05)
[2022-10-20] MEDS ORDERED: AMIODARONE INJ 450 MG in DEXTROSE 5% 241 ML IV SCH ×2 (08:30→14:30)
[2022-10-20 08:46] LABS: Calcium 7.4 MG/DL (8.5-10.1); Osmolality,Calculated 364.9 MOS/KG (273-304); Potassium 4.9 MMOL/L (3.5-5.1)
[2022-10-20] MEDS ORDERED: FAMOTIDINE 20 MG/2 ML VIAL IV SCH (10:00)
[2022-10-20 12:52] LABS: Calcium 6.8 MG/DL (8.5-10.1); Osmolality,Calculated 371.9 MOS/KG (273-304); Potassium 5.1 MMOL/L (3.5-5.1)
[2022-10-20] MEDS ORDERED: VANCOMYCIN INJ 750 MG in SODIUM CHLORIDE 0.9% 250 ML IV ONE (16:00)
[2022-10-20 16:32] LABS: Calcium 7.2 MG/DL (8.5-10.1); Potassium 5.5 MMOL/L (3.5-5.1)
[2022-10-20 16:34] LABS: ABG Base Excess -10.8 MMOL/L (-2.5-2.5); ABG HCO3 15.8 MMOL/L (20-26); ABG Oxygen Saturation 89.6 % (95-100); ABG PH 7.234 (7.35-7.45)
[2022-10-20] MEDS ORDERED: SODIUM BICARBONATE 50 MEQ/50 ML VIAL IV ONE ×3 (16:42→19:48)
[2022-10-20 17:08] LABS: Albumin 1.8 G/DL (3.4-5.0); Bilirubin,Total 0.6 MG/DL (0.20-1.00); Calcium 7.3 MG/DL (8.5-10.1); Potassium 5.5 MMOL/L (3.5-5.1); Total Protein 5.1 G/DL (6.4-8.2)
[2022-10-20] MEDS ORDERED: SODIUM BICARB INJ 100 MEQ in STERILE WATER INJ 1,000 ML IV SCH (18:00)
[2022-10-20] MEDS ORDERED: SODIUM CHLORIDE 0.9% 500 ML IV ONE (18:37)
[2022-10-20] MEDS ORDERED: DEXTROSE 50% 25 GM/50 ML SYRINGE IV ONE ×2 (22:28→23:00)
[2022-10-20] MEDS ORDERED: DEXTROSE 50% 25 GM/50 ML SYRINGE IV STA (22:34)
[2022-10-20 22:43] LABS: Calcium 6.3 MG/DL (8.5-10.1); Osmolality,Calculated 353.7 MOS/KG (273-304)
[2022-10-20 22:46] LABS: Potassium 8.2 MMOL/L (3.5-5.1)
[2022-10-20] MEDS: MEROPENEM 500 MG in SODIUM CHLORIDE 0.9% 100 ML IV SCH (23:33)
[2022-10-21] MEDS ORDERED: VANCOMYCIN INJ 750 MG in SODIUM CHLORIDE 0.9% 250 ML IV PRN (17:00)
== END 2022-10-20 22:58 | disposition expired | DRG 871 ==
LOC: N.ED 19:39 → N.CC 23:11
PROVIDERS: ADMIT Family Medicine; ATTEND Family Medicine